=== PATIENT | female | born 1980 | race Caucasian/White ===

== ENCOUNTER 2023-05-01 07:13 | Emergency (ER) | payer MEDICAID ==
[~2023-05-01] VITALS: Ht 152.4 cm; Wt 95.3 kg
[2023-05-01 07:24] VITALS: BP 179/94; PULSE 79; RESP 18; TEMP 97.6; O2SAT 99
[2023-05-01] MEDS ORDERED: KETOROLAC 60 MG/2 ML VIAL IM ONE (08:45)
[2023-05-01] MEDS ORDERED: ONDANSETRON 4 MG ODT PO ONE (08:45)
[2023-05-01] MEDS ORDERED: ACETAMINOPHEN EXTRA STRENGTH 500 MG TAB PO ONE (08:45)
[2023-05-01] MEDS ORDERED: ACET-9234 PO (10:11)
[2023-05-01] MEDS ORDERED: IBUP-2218 PO (10:11)
[2023-05-01 10:41] VITALS: BP 149/88; PULSE 81; RESP 18; TEMP 98; O2SAT 100
== END 2023-05-01 10:41 | disposition home or self-care (01) ==
LOC: MED 07:13
DX: R51.9 Headache, unspecified (principal); Z79.899 Other long term (current) drug therapy
CPT/HCPCS: 70450; 81025; 96372; 99285; J1885; Q0162

== ENCOUNTER 2023-12-27 10:24 | Emergency (ER) | payer MEDICAID ==
[~2023-12-27] VITALS: Ht 152.4 cm; Wt 103.2 kg
[~2023-12-27 10:24] MED LIST: ACET-9234 PO; IBUP-2218 PO
[2023-12-27 10:37] VITALS: BP 159/118; PULSE 99; RESP 18; TEMP 98.2; O2SAT 99
[2023-12-27] MEDS: KETOROLAC 30 MG/ML VIAL IM ONE (11:10)
[2023-12-27] MEDS ORDERED: IBUP-2213 PO (11:21)
[2023-12-27 11:28] VITALS: BP 159/118; PULSE 99; RESP 18; TEMP 98.2; O2SAT 99
== END 2023-12-27 11:33 | disposition home or self-care (01) ==
LOC: MED 10:24
DX: S93.492A Sprain of other ligament of left ankle, initial encounter (principal); Z79.899 Other long term (current) drug therapy; W22.8XXA Striking against or struck by other objects, initial encounter; Y93.89 Activity, other specified; Y92.89 Other specified places as the place of occurrence of the external cause; Y99.8 Other external cause status
CPT/HCPCS: 73610; 73630; 81025; 96372; 99284; J1885